=== PATIENT | male | born 1975 | race Caucasian/White ===

== ENCOUNTER 2019-01-17 14:52 | Emergency (ER) | payer MEDICAID ==
[~2019-01-17] VITALS: Ht 165.1 cm; Wt 84.8 kg
[2019-01-17 15:00] VITALS: BP 162/104
[2019-01-17] MEDS ORDERED: OMEP20EC11 PO (15:07)
[2019-01-17] MEDS ORDERED: FAMO-90 PO (15:07)
--- NOTE | 2019-01-17 15:07 | NUR ---
PT C/O EPIGASTRIC PAIN RADIATING TO LEFT SIDE OF ABDOMEN FOR THE PAST 1 MONTH BUT STATES WORSE TODAY, WORSE WITH DEEP BREATH. PATIENT STATES PAIN OF 10/10 AT THIS TIME; VSS; PATIENT POSITIONED FOR COMFORT; HOB ELEVATED; BEDRAILS UP X1; BED DOWN. ER MD MADE AWARE OF PT STATUS.
[2019-01-17] MEDS ORDERED: KETOROLAC 30 MG/ML VIAL IVP ONE (15:15)
[2019-01-17 15:32] LABS: BASOPHILS # (AUTO) 0.1 K/uL (0.00-0.22); BASOPHILS % (AUTO) 0.9 % (0.0-2.0); EOSINOPHILS # (AUTO) 0.1 K/uL (0-0.4); EOSINOPHILS % (AUTO) 1.1 % (0.0-4.0); HEMATOCRIT 48.1 % (36-52); HEMOGLOBIN 16.4 g/dL (12.0-18.0); LYMPHOCYTES # (AUTO) 2.6 K/uL (2.0-11.5); MEAN CORPUSCULAR HEMOGLOBIN 31 pg (27-31); MEAN CORPUSCULAR HGB CONC 34 g/dL (33-37); MEAN CORPUSCULAR VOLUME 89.8 fL (80-94); MONOCYTES # (AUTO) 0.6 K/uL (0.8-1.0); NEUTROPHILS # (AUTO) 4.1 K/uL (1.8-7.7); PLATELET COUNT (AUTO) 254 K/uL (140-450); RED BLOOD CELL COUNT(AUTO) 5.36 MIL/uL (4.20-6.10); RED CELL DISTRIBUTION WIDTH 13.2 % (11.6-13.7); WHITE BLOOD COUNT (AUTO) 7.4 K/uL (4.8-10.8)
--- NOTE | 2019-01-17 16:00 | NUR ---
PT IS RESTING IN BED WITH EYES OPENED.
[2019-01-17] MEDS ORDERED: MAGNESIUM CITRATE 300 ML BTL PO ONE (16:05)
[2019-01-17 16:53] LABS: ANION GAP 13.1 (8-16); CARBON DIOXIDE 28.9 mmol/L (21-32)
[2019-01-17 16:54] LABS: ALBUMIN 3.9 g/dL (3.4-5.0); CREATININE 1.2 mg/dL (0.7-1.3); TOTAL BILIRUBIN 0.3 mg/dL (0.0-1.0)
[2019-01-17 17:08] VITALS: BP 146/95
--- NOTE | 2019-01-17 17:08 | NUR ---
Patient discharged with v/s stable. Written and verbal after care instructions given and explained. Patient alert, oriented and verbalized understanding of instructions. Ambulatory with steady gait. All questions addressed prior to discharge. ID band removed. Patient advised to follow up with PMD. Rx of Lactulose given. Patient educated on indication of medication including possible reaction and side effects. Opportunity to ask questions provided and answered.
== END 2019-01-17 17:08 | disposition home or self-care (01) ==
LOC: MED 14:52
DX: K29.70 Gastritis, unspecified, without bleeding (principal); K59.00 Constipation, unspecified; K21.9 Gastro-esophageal reflux disease without esophagitis; Z79.899 Other long term (current) drug therapy
CPT/HCPCS: 36415; 74176; 80053; 83690; 85025; 96374; 99284; J1885